=== PATIENT | male | born 1965 | race Caucasian/White ===

== ENCOUNTER 2024-03-31 08:44 | Emergency (ER) | payer OTHER, SELFPAY ==
[2024-03-31 08:46] VITALS: BP 150/84; PULSE 62; RESP 16; TEMP 36.2; O2SAT 98; BMI 37.3
--- NOTE | 2024-03-31 09:05 | ED.GENADULT ---
HPI - General Adult General Chief complaint: General Medical Stated complaint: medication Time Seen by Provider: 03/31/24 09:05 Source: patient Mode of arrival: ambulatory Limitations: no limitations History of Present Illness ED Provider: mackenzie LAWLER narrative: Patient is a 59-year-old male with history of TBI presenting to the emergency department requesting refills of several medications. States his primary concern is a refill of mirtazepine, which he has been out of for around 1 week. States has been unable to sleep for the past four days. Also requesting refills of ropinirole and cetirizine. He reports that he was recently at [facility] and was discharged with several refills, but does not see his PCP and psychiatrist until next week. Denies any current physical complaints. MD complaint: difficulty sleeping Onset (ago): day(s) Related Data Previous Rx's ?Medication ?Instructions ?Recorded cetirizine 10 mg tablet 10 mg PO DAILY #14 tabs 03/31/24 mirtazapine 30 mg tablet 30 mg PO BEDTIME #14 tabs 03/31/24 ropinirole 0.25 mg tablet 0.25 mg PO BEDTIME #14 tabs 03/31/24 Allergies Allergy/AdvReac Type Severity Reaction Status Date / Time No Known Allergies Allergy Verified 03/31/24 08:48 Review of Systems Review of Systems: As per HPI Yes all other systems are reviewed and are negative Constitutional: Constitutional: Reports as per HPI [facility] Social History Social History Do you have a plan to hurt others: No Plan Physical Exam ED Vital Signs: Vital Signs - 24 hr 03/31/24 08:46 Temperature 97.2 F Pulse Rate 62 Respiratory Rate 16 Blood Pressure 150/84 H Pulse Oximetry 98 Oxygen Delivery Method Room Air BMI result Body Mass Index 37.3 Vital signs have been reviewed and appear to be correct. Blood pressure elevated. Heart rate normal. Respiratory rate normal. Temperature normal. Oxygen saturation normal. Const General: cooperative, healthy appearing and no acute distress Orientation/consciousness: oriented to person, oriented to place, oriented to time and patient oriented x3 Limitations: no limitations HENMT Head: Yes normocephalic and Yes atraumatic Ears: external ears normal General nose exam: Normal external nose present Face and sinus: Yes face symmetric Mouth: oropharynx normal and moist mucous membranes Throat: Yes uvula midline Eyes Pupils: Equal, round and reactive pupils present Neck Neck: Yes normal visual inspection and Yes supple Resp Effort & Inspection: normal respiratory effort and able to speak in complete sentences Auscultation: clear to auscultation bilaterally Cardio Rate: regular rate Rhythm: regular rhythm Heart sounds: S1 normal heart sound present and S2 normal heart sound present GI Palpation (GI): Soft to palpation and nontender Auscultation: normoactive bowel sounds General: Yes no CVA tenderness Back/Spine/Pelvis Back: no CVA tenderness Skin General skin exam: elasticity normal and turgor normal Neuro General: oriented to person, oriented to place, oriented to time, patient oriented x3, moves all extremities, no focal motor deficits and CN's II-XI intact bilaterally Cranial nerves: Yes Equal, round and reactive pupils present Cognition (Neuro): normal cognition Extrem General: Yes full ROM, Yes no pedal edema and Yes no calf tenderness Psych Mental Status: mental status grossly normal Affect: normal affect Thought process: Normal thought process present Medical Decision Making Medical Decision Making [facility] Narrative: Patient is a 59-year-old male with history of TBI presenting to the emergency department requesting refills of several medications. On exam patient is awake, A+Ox3, BP moderately elevated, VS otherwise WNL, afebrile, normal neurological exam without focal deficits, physical exam findings as above. Given reported symptoms and physical exam findings, initial differential includes difficulty sleeping, medication refill. Patient denies any current physical complaints. He arrives with documentation of these medications being administered at [facility]. He has follow up appointments with his PCP and psychiatrist next week. I am comfortable sending refills for 2 weeks until patient can follow up with his primary providers. Return precautions discussed. Patient verbalized understanding of and agreement with plan. Differential Diagnosis Differential Diagnoses: The differential diagnosis associated with the presentation includes As per [facility] External Record Review External record reviewed: Inpatient record, Office record and Outpatient record Prescription Management I considered prescription management with: Other Discharge Plan Discharge Clinical Impression: Difficulty sleeping, Medication refill Patient Disposition: Home, Self-Care Instructions: Medicine Refill (ED) Additional Instructions: You presented to the emergency department today for refills of medications. You are being prescribed a 2 week supply of mirtazepine, ropinirole, and cetirizine until you can see your primary care provider and psychiatrist next week. Take these medications as prescribed. Return for new or concerning symptoms. Prescriptions: New mirtazapine 30 mg tablet 30 mg PO BEDTIME Qty: 14 0RF ropinirole 0.25 mg tablet 0.25 mg PO BEDTIME Qty: 14 0RF Rx Instructions: administer 1-3 hours before bedtime cetirizine 10 mg tablet 10 mg PO DAILY Qty: 14 0RF Print Language: Panamanian
[2024-03-31 09:37] VITALS: BP 150/84; PULSE 62; RESP 16; TEMP 36.2; O2SAT 98
== END 2024-03-31 09:38 | disposition home or self-care (01) ==
PROVIDERS: Emergency Provider Emergency Medicine Emergency Medical Services; PCP Family Medicine
DX: G47.9 Sleep disorder, unspecified (principal); Z76.0 Encounter for issue of repeat prescription
CPT/HCPCS: 99282; 99283